=== PATIENT | male | born 1945 | race Caucasian/White ===

== ENCOUNTER 2017-11-03 13:28 | Observation (INO) | payer MEDICARE, OTHER ==
[2017-11-03 14:17] LABS: #Basophils 0.1 thou/uL (0.0-0.2); #Eosinphils 0.5 thou/uL (0.0-0.7); #Lymphocytes 1.3 thou/uL (1.20-3.40); #Monocytes 0.6 thou/uL (0.11-0.59); #Neutrophils 6.3 thou/uL (1.40-6.50); %Basophils 0.6 % (0.0-1.0); %Eosinophils 5.8 % (0.0-10.0); %Lymphocytes 14.9 % (21.0-51.0); %Monocytes 7.2 % (0.0-10.0); %Neutrophils 71.5 % (42.0-75.0); Hemoglobin 17.8 g/dL (14.0-18.0); Mean Corpuscular HGB CONC 32.9 g/dL (32.0-36.0); Mean Corpuscular Hemoglobin 32.3 pg (27.0-31.0); Mean Corpuscular Volume 98.3 fl (80.0-94.0); Mean Platelet Volume 7.1 fL (7.4-10.4); Platelet Count 232 thou/uL (130-400); RBC Distribution Width 13.8 % (11.5-14.5); Red Blood Cell (RBC) Count 5.51 mill/uL (4.70-6.10); White Blood Cell (WBC) Count 8.8 thou/uL (4.8-10.8)
--- NOTE | 2017-11-03 14:28 | CT ---
CT HEAD NONCONTRAST: History: Left sided numbness. FINDINGS: No comparison. There is no evidence of acute intracranial hemorrhage or infarct. Diffuse cortical atr ophy and chronic ischemic small vessel disease are apparent. There is no mass effect or shift of midl ine structures. Visualized paranasal sinuses remain well aerated. IMPRESSION: No acute intracranial abnormalities are demonstrated on noncontrast CT head. POS: [facility]
[2017-11-03 14:42] LABS: ALT (SGPT) 23 U/L (8-55); AST (SGOT) 19 U/L (5-34); Albumin 4.1 g/dL (3.4-4.8); Alkaline Phosphatase 95 U/L (40-150); Anion Gap 12 mmol/L (10-20); BUN (Urea Nitrogen) 20 mg/dL (8.4-25.7); Bilirubin, Total 0.7 mg/dL (0.2-1.2); CK (CPK) 49 U/L (30-200); CKMB 1.7 ng/mL (0-6.6); Calc. Creatinine Clearance 0 mL/min (70-130); Calcium 9.4 mg/dL (7.8-10.44); Carbon Dioxide 23 mmol/L (23-31); Chloride 106 mmol/L (98-107); Estimated GFR-MDRD 53; Globulin 3.3 g/dL (2.4-3.5); Glucose 91 mg/dL (83-110); Potassium 4.3 mmol/L (3.5-5.1); Protein, Total 7.4 g/dL (5.8-8.1); Sodium 137 mmol/L (136-145)
[2017-11-03 15:02] LABS: Troponin I 0.012 ng/mL (< 0.028)
[2017-11-03] MEDS ORDERED: Aspirin 325 MG TAB ONE (15:59)
[2017-11-03 16:42] VITALS: BMI 34.0
--- NOTE | 2017-11-03 17:19 | PDOC.EVN ---
Event Note - Event Note Event Note: I came to evaluate the patient, and as soon as I entered the room he informed me that he does not want to see a Hospitalist, and says Dr. Shaw had agreed to admit him if he were admitted in the future. I have called and spoken to Dr. Shaw who will take over his care as attending effective now.
--- NOTE | 2017-11-03 17:49 | HP ---
HISTORY OF PRESENT ILLNESS: Mr. Díaz is a 72-year-old white male with chronic renal failure from hypertensive nephropathy admitted for TIA. According to the patient, he developed some warm feeding on his left side of the face and this radiated to his left side of the body. He denies any associated weakness, tremors, dysarthria or syncopal episode. . REVIEW OF SYSTEMS: No chest pain, no shortness of breath, no nausea, no vomiting, no diarrhea, no syncopal episode, no productive cough, no fever or chills. No gross hematuria. No dysuria, no urinary frequency. No hematochezia , no melena, no hematemesis. HOME MEDICATIONS: Allopurinol 100 mg once a day, amlodipine 10 mg once a day, aspirin 325 mg daily, vitamin D3 5000 International Units 1 tab every other day , Colace 240 mg every day, Aerospan 2 puffs b.i.d., fluticasone nasal spray as directed, furosemide 20 mg p.r.n. per day, valsartan 320 mg once a day, Toprol ER 100 mg daily, triamcinolone cream p.r.n. PAST MEDICAL HISTORY: 1. Chronic renal failure secondary to presumed hypertensive nephropathy. 2. Longstanding hypertension. 3. Obstructive sleep apnea. 4. Emphysema. 5. History of cluster headaches. 6. Status post nephrolithiasis. 7. Hyperlipidemia. 8. Hypogonadism. 9. Erectile dysfunction. PAST SURGICAL HISTORY: 1. Status post hemorrhoidectomy. 2. Status post colonoscopy. 3. Status post maxillary surgery for maxillary sinus polyp. 4. Status post excision basal cell carcinoma. 5. Status post laparoscopic right colectomy with ileal transverse colon anastomosis. SOCIAL HISTORY: The patient lives in [place], , 1 child. Two children, one adopted, smoked for 35 years, 1 pack a day. He has an army . Alcohol: 3-4 drinks per month. IV drugs: No IV drug use. No blood transfusion. Education: Master's degree. 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 ALLERGIES: Unknown. TRAUMA: None. IMMUNIZATIONS: Up to date. HOSPITALIZATIONS: Please see past medical history. FAMILY HISTORY: No family history of ESRD. PHYSICAL EXAMINATION: VITAL SIGNS: Blood pressure is 140/70, heart rate 70. GENERAL: Awake, alert, comfortable, not in distress. SKIN: Adequate turgor. HEENT: Pinkish conjunctivae, anicteric sclerae. NECK: No neck mass, no carotid bruits, no JVD. CHEST: No deformities. LUNGS: Clear breath sounds. No wheezing, no crackles. HEART: Normal sinus rhythm. No murmur, no gallops, no rubs. ABDOMEN: Globular, soft, nontender, no masses. EXTREMITIES: No edema, no deformities. NEUROLOGIC: Moving all extremities. No tremors, no asterixis. Oriented to 3 spheres. IMAGING AND LABORATORY DATA: 11/03/2017, CT scan of the brain, no acute intracranial abnormality. 11/03/2017 white count 8.8, hemoglobin 17.8, sodium 147, potassium 4.3, chloride 106, carbon dioxide 23, BUN 20, creatinine 1.31, GFR 53 mL per minute. AST 19, ALT 23, troponin I 0.012. ASSESSMENT AND PLAN: 1. Transient ischemic attack and a repeat CT scan will be done in the morning to rule out any significant infarction. From a clinical point of view, the patient does not show any deficit. He most likely simply has transient ischemic attack. However, a scheduled carotid Doppler will be done. He will be admitted for further monitoring. Furthermore an MRI of the brain and cardiac echo has been ordered. 2. Chronic renal failure secondary to hypertensive nephropathy. Creatinine is noted at 1.3, which is near baseline. He continues to be at stage 3 chronic renal failure. There is no indication for any dialytic intervention. He has previously been on valsartan. I would probably continue the valsartan, observe renal function with this medication onboard. Agree with the current management. RULA
[2017-11-03] MEDS ORDERED: cloNIDine 0.1 MG TAB PO PRN (18:49)
[2017-11-03] MEDS ORDERED: Docusate 100 MG CAP PO PRN (18:50)
[2017-11-03] MEDS ORDERED: Amlodipine 10 MG TAB PO SCH (21:00)
[2017-11-03] MEDS: Heparin 5,000 UNITS/ML VIAL SC SCH (21:21)
[2017-11-04 06:37] LABS: #Basophils 0.1 thou/uL (0.0-0.2); #Eosinphils 0.5 thou/uL (0.0-0.7); #Lymphocytes 1.6 thou/uL (1.20-3.40); #Monocytes 0.6 thou/uL (0.11-0.59); #Neutrophils 4.7 thou/uL (1.40-6.50); %Basophils 0.9 % (0.0-1.0); %Eosinophils 6.9 % (0.0-10.0); %Lymphocytes 21.4 % (21.0-51.0); %Monocytes 8.3 % (0.0-10.0); %Neutrophils 62.4 % (42.0-75.0); Hemoglobin 17.4 g/dL (14.0-18.0); Mean Corpuscular Hemoglobin 31.9 pg (27.0-31.0); Mean Corpuscular Volume 96.6 fl (80.0-94.0); Mean Platelet Volume 7.1 fL (7.4-10.4); Platelet Count 213 thou/uL (130-400); RBC Distribution Width 13.7 % (11.5-14.5); Red Blood Cell (RBC) Count 5.44 mill/uL (4.70-6.10); White Blood Cell (WBC) Count 7.6 thou/uL (4.8-10.8)
[2017-11-04 07:04] LABS: ALT (SGPT) 17 U/L (8-55); AST (SGOT) 16 U/L (5-34); Albumin 3.9 g/dL (3.4-4.8); Alkaline Phosphatase 90 U/L (40-150); Anion Gap 13 mmol/L (10-20); BUN (Urea Nitrogen) 17 mg/dL (8.4-25.7); Bilirubin, Total 0.8 mg/dL (0.2-1.2); Calc. Creatinine Clearance 80 mL/min (70-130); Calcium 9.2 mg/dL (7.8-10.44); Carbon Dioxide 26 mmol/L (23-31); Cardiac Risk 6.2 (Less than 4.5); Chloride 106 mmol/L (98-107); Cholesterol 173 mg/dl (< 200 Desired); Estimated GFR-MDRD 54; Globulin 2.9 g/dL (2.4-3.5); Glucose 92 mg/dL (83-110); HDL Cholesterol 28 mg/dL (>60 Neg Risk); LDL Cholesterol, Calculated 94 mg/dL; Potassium 4.2 mmol/L (3.5-5.1); Protein, Total 6.8 g/dL (5.8-8.1); Sodium 141 mmol/L (136-145); Triglycerides 257 mg/dL (Less than 150)
--- NOTE | 2017-11-04 08:16 | ULT ---
BILATERAL CAROTID DUPLEX ULTRASOUND: HISTORY: CVA. TECHNIQUE: Dickson scale ultrasound with color and spectral Doppler imaging of the extracranial carotid artery syst ems was performed bilaterally. FINDINGS: There is plaque formation on either side. The peak systolic velocity in the right ICA measures 87 cm/s with an end-diastolic velocity of 20 cm/ s and a systolic ratio of 1.20. The peak systolic velocity in the left ICA measures 76 cm/s with an end-diastolic velocity of 17 cm/s and a systolic ratio of 1.01. Flow in both vertebral arteries remains antegrade. IMPRESSION: No evidence of hemodynamically significant stenosis. POS: [facility]
--- NOTE | 2017-11-04 08:43 | MRI ---
MRI BRAIN WITHOUT CONTRAST: History: Left sided weakness. Assess for CVA. FINDINGS: Mild cortical volume loss. Moderate white matter changes seen in both cerebral hemispheres. No evidence of restricted diffusion. No evidence of acute infarct. No mass or edema. Intracranial int ernal carotid arteries, proximal cerebral arteries, and basilar arteries show flow voids. IMPRESSION: 1. Moderate cortical volume loss. 2. Moderate chronic ischemic white matter change. 3. No evidence of acute infarct. POS: [facility]
[2017-11-04] MEDS: Heparin 5,000 UNITS/ML VIAL SC SCH (08:47)
[2017-11-04] MEDS ORDERED: Aspirin 325 MG TAB PO SCH (09:00)
[2017-11-04] MEDS ORDERED: Valsartan 80 MG TAB PO SCH (09:00)
[2017-11-04] MEDS ORDERED: Folic Acid 1 MG TAB PO SCH (09:00)
[2017-11-04 12:06] VITALS: TEMP 98.1
[2017-11-04 12:36] VITALS: BP 142/80
--- NOTE | 2017-11-04 18:29 | DIS ---
DATE OF ADMISSION: 11/03/2017 DATE OF DISCHARGE: 11/04/2017 ADMITTING DIAGNOSES: Transient ischemic attack, hypertension, and chronic renal failure. DISCHARGE DIAGNOSES: Transient ischemic attack, hypertension, and chronic renal failure. ATTENDING: Sd Shaw MD CONSULTATIONS: None. IMAGING: CT scan of the brain; no acute intracranial abnormality. MRI of the brain; no CVA. Caroti d Dopplers; negative. Cardiac echo; official reading is pending. INVASIVE PROCEDURES: None. BRIEF HISTORY: Mr. Díaz is a 72-year-old white male who was admitted for TIA. He presented with f acial numbness as well as left-sided numbness of the extremities and some degree of mild weakness - d escribed as warm feeling. On the day of admission, the patient was admitted to a stroke unit. He was managed conservatively. He was started on heparin 5000 units subcu b.i.d. During the night, no acute events were noted. On the first day of the hospitalization and on the day of discharge, the patient underwent an MRI of the brain and carotid Doppler, they were all negative. Cardiac echo was done, but official reading was pending. He was clinically asymptomatic at the time. PHYSICAL EXAMINATION VITAL SIGNS: His blood pressure was noted at 165/90, heart rate 60, respiratory rate 20, temperature 98.1, pulse ox 100%. GENERAL: He was awake, alert, supine, comfortable, not in distress. SKIN: Adequate turgor. HEENT: Pinkish conjunctivae, anicteric sclerae. NECK: No neck mass, no carotid bruits, no JVD. CHEST: No deformities. LUNGS: Clear breath sounds. No wheezing, no crackles. HEART: Normal sinus rhythm. No murmur, no gallops, no rubs. ABDOMEN: Globular, soft, nontender. No masses. EXTREMITIES: No edema. NEUROLOGIC: Moving all extremities. No tremors, no asterixis, no neurologic deficit noted. Due to the much improved condition, the patient would be discharged from the hospital. DISCHARGE CONDITION: Much improved. DISCHARGE MEDICATIONS: Diovan 320 mg tab once a day, Toprol-XL 100 mg at bedtime, Folvite 1 mg once a day, Colace 100 mg p.o. daily p.r.n., Catapres 0.1 mg q.6 hours p.r.n. for BP systolic of 180 or gr eater, aspirin 325 mg once a day, Norvasc 10 mg tab at bedtime. DISCHARGE INSTRUCTIONS: The patient instructed to follow up with his primary care provider in 1-2 we eks and the renal clinic in 1 month. He was also advised on heart-healthy diet. ADDENDUM: LDL cholesterol was reported as 94 and triglyceride was noted at 257 as well as HDL which was reporte d as 28 and for this reason, the patient will be started on simvastatin 5 mg tab at bedtime. We will call in the prescription to the patient's pharmacy.
[2017-11-04] MEDS ORDERED: Simvastatin 5 MG TAB PO SCH (21:00)
== END 2017-11-04 15:14 | disposition home or self-care (01) ==
LOC: ERS 13:28 → 2SE 15:09
PROVIDERS: ADMIT Emergency Medicine; ATTEND Internal Medicine Nephrology
DX: G45.9 Transient cerebral ischemic attack, unspecified (principal); I12.9 Hypertensive chronic kidney disease with stage 1 through stage 4 chronic kidney disease, or unspecified chronic kidney disease; N18.3 Chronic kidney disease, stage 3 (moderate); G47.33 Obstructive sleep apnea (adult) (pediatric); J43.9 Emphysema, unspecified; F17.210 Nicotine dependence, cigarettes, uncomplicated; E78.5 Hyperlipidemia, unspecified; N52.9 Male erectile dysfunction, unspecified; Z79.82 Long term (current) use of aspirin; Z79.899 Other long term (current) drug therapy; Z90.49 Acquired absence of other specified parts of digestive tract; Z98.890 Other specified postprocedural states; Z87.442 Personal history of urinary calculi
CPT/HCPCS: 70450; 70551; 80053 ×2; 80061; 82550; 82553; 84484; 85025 ×2; 93306; 93880; 97139; 99285; G0378; 36415; A4216; J1644

== ENCOUNTER 2018-09-20 09:34 | Outpatient (CLI) | payer MEDICARE ==
--- NOTE | 2018-09-20 10:41 | RAD ---
CHEST PA AND LATERAL: History: 73-year-old male with history of malignant neoplasm of ascending colon. Comparison: 05-05-14 FINDINGS: Marked atherosclerotic changes of the descending thoracic aorta, overall stable from prior study. Min imal increased linear and interstitial markings bilaterally, also stable. No confluent pneumonia, ove rt edema, or pleural effusion. No evidence for metastasis. IMPRESSION: Marked atherosclerotic ectatic changes of the aorta, particularly the descending portion, stable. Sta ble increased linear and interstitial markings bilaterally. POS: [facility]
== END 2018-09-20 09:35 | disposition home or self-care (01) ==
LOC: BICRAD 09:34
PROVIDERS: ATTEND Internal Medicine Hematology & Oncology
DX: C18.2 Malignant neoplasm of ascending colon (principal)
CPT/HCPCS: 71046; 82378

== ENCOUNTER 2018-10-18 11:58 | Outpatient (CLI) | payer MEDICARE ==
--- NOTE | 2018-10-18 12:23 | RAD ---
TWO VIEWS CHEST: Comparison: 09-20-18 History: Cough, congestion, dyspnea. FINDINGS: Two views of the chest show normal sized cardiomediastinal silhouette. There is no evidence of consol idation, mass, or pleural effusion. The bones are unremarkable. IMPRESSION: No evidence of acute cardiopulmonary disease. POS: [facility]
== END 2018-10-18 11:59 | disposition home or self-care (01) ==
LOC: BICRAD 11:58
PROVIDERS: ATTEND Internal Medicine
DX: R06.00 Dyspnea, unspecified (principal)
CPT/HCPCS: 71046

== ENCOUNTER 2019-01-19 09:45 | Outpatient (CLI) | payer MEDICARE ==
--- NOTE | 2019-01-19 11:43 | RAD ---
PA AND LATERAL CHEST X-RAY: 01/19/2019 HISTORY: Dyspnea. COMPARISON: 10/18/2018 FINDINGS: Again noted is mild elevation of the left hemidiaphragm. There is gaseous distention of the stomach. The cardiac silhouette and pulmonary vasculature are within normal limits. The lungs remain clear. Vascular calcifications are seen in a tortuous and ectatic thoracic aorta. This is stable when com pared to the prior exam and is also similar to a study obtained in 2014. There has been no interval change from the prior exam. IMPRESSION: Stable chest without evidence of an acute cardiopulmonary process. POS: [facility]
== END 2019-01-19 09:46 | disposition home or self-care (01) ==
LOC: RAD 09:45
PROVIDERS: ATTEND Internal Medicine Critical Care Medicine
DX: R06.00 Dyspnea, unspecified (principal)
CPT/HCPCS: 71046

== ENCOUNTER 2020-01-20 10:19 | Outpatient (CLI) | payer MEDICARE ==
--- NOTE | 2020-01-20 11:52 | RAD ---
XR Chest Pa Lat STANDARD HISTORY: Dyspnea COMPARISON: Earlier exam of same date of 9:59 AM. FINDINGS: There is continued mild elevation the left hemidiaphragm. The heart size normal. The aorta is tortuous. No lobar consolidation, pneumothoraces or pleural effusions are seen. Gaseous distention of the stomach is again noted. IMPRESSION: No radiographic evidence of acute cardiopulmonary process.
--- NOTE | 2020-01-20 11:53 | NM ---
VQ SCAN: HISTORY: Dyspnea. Other pulmonary embolism without acute cor pulmonale TECHNIQUE: A ventilation/perfusion scan was performed using 14.8 mCi xenon-133 by inhalation for the ventilation study followed by the intravenous administration of 6.6 mCi technetium 99m-MAA for the perfusion scan. CORRELATION: Chest radiograph from same date. FINDINGS: Mild inhomogeneity is noted in the tracer distribution to the lung muir bilaterally on ventilation and perfusion scans. No mismatched pleural-based, wedge-shaped, segmental or subsegmental perfusion defects are identified . There is tracer retention on the washout phase of the ventilation scan, compatible with COPD. IMPRESSION: Low probability for pulmonary embolism.
== END 2020-01-20 10:20 | disposition home or self-care (01) ==
LOC: NM 10:19
PROVIDERS: ATTEND Internal Medicine
DX: I26.99 Other pulmonary embolism without acute cor pulmonale (principal); R06.02 Shortness of breath; R06.00 Dyspnea, unspecified
CPT/HCPCS: 71046; 78582; A9540; A9558

== ENCOUNTER 2020-05-04 09:58 | Outpatient (CLI) | payer MEDICARE ==
--- NOTE | 2020-05-04 10:20 | RAD ---
EXAM: Two views chest PROVIDED CLINICAL HISTORY: Dyspnea COMPARISON: 01/20/2020 and 09/20/2018 FINDINGS: Cardiac silhouette and pulmonary vasculature are within normal limits. Again noted is tortuosity and ectasia involving the descending thoracic aorta with vascular calcifications in the aortic arch. The lungs are clear. Mild elevation left hemidiaphragm is again seen. Chest is stable when compared t o the prior exams. IMPRESSION: No acute cardiopulmonary process.
== END 2020-05-04 09:59 | disposition home or self-care (01) ==
LOC: BICRAD 09:58
PROVIDERS: ATTEND Internal Medicine Critical Care Medicine
DX: R06.00 Dyspnea, unspecified (principal)
CPT/HCPCS: 71046

== ENCOUNTER 2022-05-21 14:30 | Observation (INO) | payer MEDICARE ==
[2022-05-21 15:17] LABS: #Basophils 0.1 thou/uL (0.0-0.2); #Eosinphils 0.2 thou/uL (0.0-0.7); #Lymphocytes 0.9 thou/uL (1.20-3.40); #Monocytes 0.6 thou/uL (0.11-0.59); #Neutrophils 5.8 thou/uL (1.40-6.50); %Basophils 1.2 % (0.0-1.0); %Eosinophils 2.2 % (0.0-10.0); %Lymphocytes 11.4 % (21.0-51.0); %Monocytes 7.4 % (0.0-10.0); %Neutrophils 77.9 % (42.0-75.0); Hemoglobin 16.5 g/dL (14.0-18.0); Mean Corpuscular HGB CONC 33.4 g/dL (32.0-36.0); Mean Corpuscular Hemoglobin 31.8 pg (27.0-31.0); Mean Platelet Volume 6.9 fL (7.4-10.4); Platelet Count 282 thou/uL (130-400); RBC Distribution Width 14.5 % (11.5-14.5); Red Blood Cell (RBC) Count 5.18 mill/uL (4.70-6.10); White Blood Cell (WBC) Count 7.5 thou/uL (4.8-10.8)
[2022-05-21] MEDS ORDERED: Ondansetron PF 4 MG/2 ML Vial ONE (15:39)
[2022-05-21] MEDS ORDERED: Dicyclomine 20 MG/2 ML VIAL ONE (15:39)
[2022-05-21 15:42] LABS: ALT (SGPT) 10 U/L (8-55); AST (SGOT) 10 U/L (5-34); Albumin 4.2 g/dL (3.4-4.8); Alkaline Phosphatase 76 U/L (40-110); Anion Gap 17 mmol/L (10-20); BUN (Urea Nitrogen) 102 mg/dL (8.4-25.7); Bilirubin, Total 0.8 mg/dL (0.2-1.2); Calc. Creatinine Clearance 0 mL/min (70-130); Calcium 8.7 mg/dL (7.8-10.44); Carbon Dioxide 14 mmol/L (23-31); Chloride 105 mmol/L (98-107); Estimated GFR 27; Globulin 2.9 g/dL (2.4-3.5); Glucose 117 mg/dL (83-110); Potassium 5.1 mmol/L (3.5-5.1); Protein, Total 7.1 g/dL (5.8-8.1); Sodium 131 mmol/L (136-145)
[2022-05-21] MEDS ORDERED: Ondansetron ODT 4 MG TAB PO PRN (18:59)
[2022-05-21] MEDS ORDERED: Acetaminophen 325 MG TAB PO PRN (18:59)
[2022-05-21] MEDS ORDERED: Ondansetron PF 4 MG/2 ML Vial IVP PRN (18:59)
[2022-05-21] MEDS: Sodium Chloride 0.9% 1,000 ML IV SCH (19:23)
[2022-05-22 06:11] LABS: #Basophils 0.1 thou/uL (0.0-0.2); #Eosinphils 0.3 thou/uL (0.0-0.7); #Lymphocytes 1.1 thou/uL (1.20-3.40); #Monocytes 0.7 thou/uL (0.11-0.59); #Neutrophils 4.3 thou/uL (1.40-6.50); %Eosinophils 4.6 % (0.0-10.0); %Monocytes 11.1 % (0.0-10.0); %Neutrophils 66.3 % (42.0-75.0); Hemoglobin 15.4 g/dL (14.0-18.0); Mean Corpuscular Hemoglobin 31.5 pg (27.0-31.0); Mean Corpuscular Volume 95.5 fL (78.0-98.0); Mean Platelet Volume 7.1 fL (7.4-10.4); Platelet Count 286 thou/uL (130-400); RBC Distribution Width 14.8 % (11.5-14.5); White Blood Cell (WBC) Count 6.5 thou/uL (4.8-10.8)
[2022-05-22 06:50] LABS: #Basophils 0.1 thou/uL (0.0-0.2); #Eosinphils 0.3 thou/uL (0.0-0.7); #Lymphocytes 1.2 thou/uL (1.20-3.40); #Monocytes 0.8 thou/uL (0.11-0.59); #Neutrophils 4.5 thou/uL (1.40-6.50); %Basophils 0.8 % (0.0-1.0); %Eosinophils 4.6 % (0.0-10.0); %Monocytes 11.4 % (0.0-10.0); %Neutrophils 66.1 % (42.0-75.0); Hemoglobin 16.4 g/dL (14.0-18.0); Mean Corpuscular HGB CONC 33.1 g/dL (32.0-36.0); Mean Corpuscular Hemoglobin 31.7 pg (27.0-31.0); Mean Corpuscular Volume 95.6 fL (78.0-98.0); Mean Platelet Volume 6.8 fL (7.4-10.4); Platelet Count 290 thou/uL (130-400); RBC Distribution Width 14.7 % (11.5-14.5); Red Blood Cell (RBC) Count 5.19 mill/uL (4.70-6.10); White Blood Cell (WBC) Count 6.8 thou/uL (4.8-10.8)
[2022-05-22 07:12] LABS: ALT (SGPT) 9 U/L (8-55); AST (SGOT) 9 U/L (5-34); Albumin 4.1 g/dL (3.4-4.8); Alkaline Phosphatase 69 U/L (40-110); Anion Gap 15 mmol/L (10-20); BUN (Urea Nitrogen) 77 mg/dL (8.4-25.7); Bilirubin, Total 0.7 mg/dL (0.2-1.2); Calc. Creatinine Clearance 0 mL/min (70-130); Calcium 9.1 mg/dL (7.8-10.44); Carbon Dioxide 17 mmol/L (23-31); Chloride 114 mmol/L (98-107); Estimated GFR 36; Glucose 110 mg/dL (83-110); Potassium 4.9 mmol/L (3.5-5.1); Protein, Total 7.1 g/dL (5.8-8.1); Sodium 141 mmol/L (136-145)
[2022-05-22] MEDS: Sodium Chloride 0.9% 1,000 ML IV SCH ×3 (10:43→20:25)
[2022-05-22] MEDS ORDERED: Amlodipine 5 MG TAB PO SCH (11:30)
[2022-05-22] MEDS ORDERED: Apixaban 2.5 MG TAB PO SCH (11:30)
[2022-05-22] MEDS ORDERED: Aggrenox 200-25mg CAP PO SCH (11:30)
[2022-05-22] MEDS ORDERED: Minoxidil 2.5 MG TAB PO SCH (13:45)
[2022-05-22] MEDS: Icosapent Ethyl 1 GM CAPSULE PO SCH (20:23)
[2022-05-22] MEDS: Minoxidil 2.5 MG TAB PO SCH (20:23)
[2022-05-22] MEDS: Aggrenox 200-25mg CAP PO SCH (20:23)
[2022-05-22] MEDS: Apixaban 2.5 MG TAB PO SCH (20:23)
[2022-05-22] MEDS ORDERED: Atorvastatin Calcium 40 MG TAB PO SCH (21:00)
[2022-05-23] MEDS: Sodium Chloride 0.9% 1,000 ML IV SCH (05:15)
[2022-05-23 05:51] LABS: #Eosinphils 0.4 thou/uL (0.0-0.7); #Lymphocytes 0.9 thou/uL (1.20-3.40); #Monocytes 0.7 thou/uL (0.11-0.59); #Neutrophils 4.6 thou/uL (1.40-6.50); %Basophils 0.5 % (0.0-1.0); %Eosinophils 5.5 % (0.0-10.0); %Lymphocytes 13.7 % (21.0-51.0); %Monocytes 10.9 % (0.0-10.0); %Neutrophils 69.4 % (42.0-75.0); Hemoglobin 14.5 g/dL (14.0-18.0); Mean Corpuscular HGB CONC 32.4 g/dL (32.0-36.0); Mean Corpuscular Hemoglobin 31.2 pg (27.0-31.0); Mean Corpuscular Volume 96.3 fL (78.0-98.0); Mean Platelet Volume 7.1 fL (7.4-10.4); Platelet Count 267 thou/uL (130-400); RBC Distribution Width 14.6 % (11.5-14.5); Red Blood Cell (RBC) Count 4.65 mill/uL (4.70-6.10); White Blood Cell (WBC) Count 6.6 thou/uL (4.8-10.8)
[2022-05-23 06:31] LABS: Anion Gap 13 mmol/L (10-20); BUN (Urea Nitrogen) 47 mg/dL (8.4-25.7); Calc. Creatinine Clearance 64 mL/min (70-130); Calcium 8.5 mg/dL (7.8-10.44); Carbon Dioxide 17 mmol/L (23-31); Chloride 114 mmol/L (98-107); Estimated GFR 52; Glucose 87 mg/dL (83-110); Potassium 4.7 mmol/L (3.5-5.1); Sodium 139 mmol/L (136-145)
[2022-05-23 07:43] LABS: Anion Gap 13 mmol/L (10-20); BUN (Urea Nitrogen) 44 mg/dL (8.4-25.7); Calc. Creatinine Clearance 57 mL/min (70-130); Calcium 8.6 mg/dL (7.8-10.44); Carbon Dioxide 16 mmol/L (23-31); Chloride 115 mmol/L (98-107); Estimated GFR 45; Glucose 96 mg/dL (83-110); Sodium 139 mmol/L (136-145)
[2022-05-23] MEDS: Icosapent Ethyl 1 GM CAPSULE PO SCH (08:15)
[2022-05-23] MEDS: Minoxidil 2.5 MG TAB PO SCH (08:15)
[2022-05-23] MEDS: Aggrenox 200-25mg CAP PO SCH (08:15)
[2022-05-23] MEDS: Apixaban 2.5 MG TAB PO SCH (08:16)
[2022-05-23] MEDS ORDERED: Amlodipine 5 MG TAB PO SCH (09:00)
[2022-05-23 11:25] VITALS: BP 117/74; TEMP 97.9
== END 2022-05-23 11:40 | disposition home or self-care (01) ==
LOC: ERS 14:30 → ERHOLD 17:37 → T4-A 05-22 11:31
PROVIDERS: ADMIT Internal Medicine; ATTEND Internal Medicine
DX: I12.9 Hypertensive chronic kidney disease with stage 1 through stage 4 chronic kidney disease, or unspecified chronic kidney disease (principal); N18.9 Chronic kidney disease, unspecified; N17.9 Acute kidney failure, unspecified; U07.1 COVID-19; E86.0 Dehydration; G47.33 Obstructive sleep apnea (adult) (pediatric); J43.9 Emphysema, unspecified; E78.5 Hyperlipidemia, unspecified; M54.30 Sciatica, unspecified side; E87.1 Hypo-osmolality and hyponatremia; I27.20 Pulmonary hypertension, unspecified; Z85.038 Personal history of other malignant neoplasm of large intestine; Z87.891 Personal history of nicotine dependence; Z79.01 Long term (current) use of anticoagulants; Z79.899 Other long term (current) drug therapy
CPT/HCPCS: 71045; 80048 ×2; 80053 ×2; 83605; 84484; 85025 ×4; 93005; 94760; 96361; 96372; 96374; 99285; U0003; U0005; 36415; G0378; J2405; J7050

== ENCOUNTER 2023-06-25 19:00 | Outpatient (CLI) | payer MEDICARE | END 2023-06-25 19:01 | disposition home or self-care (01) | LOC: SLEEPLAB 19:00 | PROVIDERS: ATTEND Internal Medicine Critical Care Medicine | DX: G47.33 Obstructive sleep apnea (adult) (pediatric) (principal); I10 Essential (primary) hypertension; R09.02 Hypoxemia; J44.9 Chronic obstructive pulmonary disease, unspecified; R06.83 Snoring; G47.10 Hypersomnia, unspecified; E66.9 Obesity, unspecified; Z68.31 Body mass index [BMI] 31.0-31.9, adult | CPT/HCPCS: 95811 ==

== ENCOUNTER 2024-04-12 05:52 | Day surgery (SDC) | payer MEDICARE ==
[2024-04-08 12:49] VITALS: BMI 25.0
[2024-04-12] MEDS ORDERED: PROPOFOL 40 ML ONE (07:29)
[2024-04-12] MEDS ORDERED: Lidocaine 1% PF 5 ML VIAL ONE (07:30)
[2024-04-12] MEDS ORDERED: Lidocaine 1% MPF 2 ML VIAL ONE (07:47)
== END 2024-04-12 09:21 | disposition home or self-care (01) ==
LOC: SDC 05:52
PROVIDERS: ATTEND Internal Medicine Gastroenterology
PROC: 0DBK8ZZ Excision of Ascending Colon, Via Natural or Artificial Opening Endoscopic (ICD-10-PCS; principal; 2024-04-12)
PROC: 0DBN8ZZ Excision of Sigmoid Colon, Via Natural or Artificial Opening Endoscopic (ICD-10-PCS; 2024-04-12)
PROC: 0DBP8ZZ Excision of Rectum, Via Natural or Artificial Opening Endoscopic (ICD-10-PCS; 2024-04-12)
DX: Z12.11 Encounter for screening for malignant neoplasm of colon (principal); D12.2 Benign neoplasm of ascending colon; K57.30 Diverticulosis of large intestine without perforation or abscess without bleeding; I48.91 Unspecified atrial fibrillation; I12.9 Hypertensive chronic kidney disease with stage 1 through stage 4 chronic kidney disease, or unspecified chronic kidney disease; N18.9 Chronic kidney disease, unspecified; E78.5 Hyperlipidemia, unspecified; Z86.010 Personal history of colon polyps; Z85.038 Personal history of other malignant neoplasm of large intestine; Z98.0 Intestinal bypass and anastomosis status; Z90.49 Acquired absence of other specified parts of digestive tract; Z79.82 Long term (current) use of aspirin; Z79.899 Other long term (current) drug therapy; Z87.891 Personal history of nicotine dependence
CPT/HCPCS: 88305; J2704